=== PATIENT | female | born 1960 | race African-American/Black ===

== ENCOUNTER 2018-12-05 07:09 | Inpatient (IN) | payer MEDICARE, MEDICAID ==
[~2018-12-05] VITALS: Ht 154.9 cm; Wt 103.6 kg
[2018-12-05] MEDS ORDERED: ONDANSETRON HCL 4MG/2ML INJ IV STA (08:11)
[2018-12-05] MEDS ORDERED: MORPHINE SULFATE 4 MG/ML CPJ (NOT FOR IM USE) IV STA (08:11)
[2018-12-05] MEDS ORDERED: SODIUM CHLORIDE 0.9% 1,000 ML IV ONE (08:11)
[2018-12-05] MEDS ORDERED: DIATR MEGLU/DIATRIZOATE SOLN 30ML ONE (08:55)
[2018-12-05 09:35] LABS: HEMATOCRIT. 43.6 % (36.0-48.0); HEMOGLOBIN. 14.6 g/dL (12.0-16.0); MEAN CORPUSCULAR HEMOGLOBIN 27.9 pg (28.0-32.0); MEAN CORPUSCULAR VOLUME 83.1 fL (81.0-99.0); MEAN PLATELET VOLUME 7.6 fl (7.4-10.4); PLATELET 264 x1000/uL (130-400); RED BLOOD CELL COUNT 5.25 mill/uL (4.2-5.4); RED CELL DISTRIBUTION WIDTH 15.7 % (11.6-14.6)
[2018-12-05 09:41] LABS: CHLORIDE 95 mEq/L (98-107)
[2018-12-05 10:24] LABS: PLATELET ESTIMATE NORMAL
[2018-12-05] MEDS ORDERED: CLONIDINE 0.1MG TABLET PO PRN (19:30)
[2018-12-05] MEDS ORDERED: KETOROLAC 30MG/ML VIAL IV PRN (19:30)
[2018-12-05] MEDS ORDERED: HYDROMORPHONE HCL/PF 2MG/ML CPJ IV PRN (19:30)
[2018-12-05] MEDS ORDERED: DIPHENHYDRAMINE 50MG/ML VIAL IV PRN (19:30)
[2018-12-05] MEDS ORDERED: ONDANSETRON HCL 4MG/2ML INJ IV PRN (19:30)
[2018-12-05] MEDS ORDERED: IPRATROPIUM/ALBUTEROL 0.5-3(2.5)MG/3ML NEB INH PRN (19:30)
[2018-12-05] MEDS ORDERED: ACETAMINOPHEN 325MG TABLET PO PRN (19:30)
[2018-12-05] MEDS ORDERED: GUAIFENESIN 200MG/10ML SUGAR FREE UDC PO PRN (19:30)
[2018-12-05 20:00] VITALS: BP 130/79
[2018-12-05] MEDS ORDERED: ASPI-1159 PO (21:41)
[2018-12-05] MEDS ORDERED: LOVA10TA54 PO (21:41)
[2018-12-05] MEDS ORDERED: GABA-531 PO (21:41)
[2018-12-05] MEDS ORDERED: METF-414 PO (21:41)
[2018-12-05] MEDS ORDERED: LOSA1TAB37 PO (21:41)
[2018-12-05] MEDS ORDERED: FERR325T23 PO (21:56)
[2018-12-05] MEDS ORDERED: CHOL500063 PO (21:56)
[2018-12-05] MEDS ORDERED: CALC-1042 PO (21:56)
[2018-12-05] MEDS ORDERED: CYAN250010 PO (21:56)
[2018-12-05] MEDS: PANTOPRAZOLE SODIUM 40 MG/VIAL IV SCH (22:42)
[2018-12-05] MEDS: SODIUM CHLORIDE 0.9% 1,000 ML IV SCH (22:43)
[2018-12-06] VITALS: BP 135/59
[2018-12-06 01:19] VITALS: BP 128/82
[2018-12-06 04:00] VITALS: BP 126/64
[2018-12-06] MEDS ORDERED: DEXTROSE 50% WATER 50ML SYRINGE IV PRN (05:45)
[2018-12-06 06:24] LABS: BASOPHILS % 0.1 % (0.0-2.0); EOSINOPHILS % 0.3 % (0.0-5.0); HEMATOCRIT. 41.1 % (36.0-48.0); HEMOGLOBIN. 13.7 g/dL (12.0-16.0); LYMPHOCYTES % 13.1 % (20.0-50.0); MEAN CORPUSCULAR HEMOGLOBIN 27.7 pg (28.0-32.0); MEAN CORPUSCULAR VOLUME 83.3 fL (81.0-99.0); MEAN PLATELET VOLUME 7.5 fl (7.4-10.4); MONOCYTES % 8.4 % (2.0-8.0); NEUTROPHILS % 78.1 % (40.0-76.0); PLATELET 295 x1000/uL (130-400); RED BLOOD CELL COUNT 4.93 mill/uL (4.2-5.4); RED CELL DISTRIBUTION WIDTH 15.2 % (11.6-14.6)
[2018-12-06 06:34] LABS: CHLORIDE 97 mEq/L (98-107)
[2018-12-06 06:50] LABS: PHOSPHORUS 4.5 mg/dL (2.5-4.9)
[2018-12-06] MEDS: BLOOD SUGAR DIAGNOSTIC STRIP TEST SCH ×4 (07:35→21:54)
[2018-12-06] MEDS: INSULIN LISPRO 100 UNITS/ML SUBCUT SCH ×4 (07:50→21:00)
[2018-12-06] MEDS: PANTOPRAZOLE SODIUM 40 MG/VIAL IV SCH (08:59)
[2018-12-06 12:00] VITALS: BP_SYST 106; BP_SYST 120; BP_DIAS 56; BP_DIAS 60
[2018-12-06] MEDS: SODIUM CHLORIDE 0.9% 1,000 ML IV SCH (15:25)
[2018-12-06 16:00] VITALS: BP 106/56
[2018-12-06 20:00] VITALS: BP 110/60
[2018-12-07] MEDS: SODIUM CHLORIDE 0.9% 1,000 ML IV SCH ×4 (01:25→21:25)
[2018-12-07 02:52] VITALS: BP 120/60
[2018-12-07 04:00] VITALS: BP 126/64
[2018-12-07] MEDS: BLOOD SUGAR DIAGNOSTIC STRIP TEST SCH ×4 (07:25→21:16)
[2018-12-07] MEDS: INSULIN LISPRO 100 UNITS/ML SUBCUT SCH ×4 (07:25→21:00)
[2018-12-07 08:00] VITALS: BP 146/84
[2018-12-07] MEDS: PANTOPRAZOLE SODIUM 40 MG/VIAL IV SCH (08:45)
[2018-12-07 12:00] VITALS: BP 144/84
[2018-12-07 16:24] VITALS: BP 146/79
[2018-12-08] MEDS: BLOOD SUGAR DIAGNOSTIC STRIP TEST SCH ×2 (07:20→11:59)
[2018-12-08] MEDS: SODIUM CHLORIDE 0.9% 1,000 ML IV SCH (07:25)
[2018-12-08] MEDS: INSULIN LISPRO 100 UNITS/ML SUBCUT SCH ×2 (07:50→11:59)
[2018-12-08 08:00] VITALS: BP 143/77
[2018-12-08] MEDS: PANTOPRAZOLE SODIUM 40 MG/VIAL IV SCH (09:00)
[2018-12-08 12:00] VITALS: BP 150/82
[2018-12-08 13:38] VITALS: BP 150/82
== END 2018-12-08 15:27 | disposition home or self-care (01) | DRG 389 ==
LOC: ER 07:09 → 6EST 14:09 → ENRESERV 14:19
PROVIDERS: ADMIT Internal Medicine; ATTEND Internal Medicine
DX: K56.699 Other intestinal obstruction unspecified as to partial versus complete obstruction (principal); Z68.41 Body mass index [BMI] 40.0-44.9, adult; E11.40 Type 2 diabetes mellitus with diabetic neuropathy, unspecified; I10 Essential (primary) hypertension; Z96.659 Presence of unspecified artificial knee joint; J44.9 Chronic obstructive pulmonary disease, unspecified; F32.9 Major depressive disorder, single episode, unspecified; F41.9 Anxiety disorder, unspecified; K21.9 Gastro-esophageal reflux disease without esophagitis; F17.210 Nicotine dependence, cigarettes, uncomplicated; Z82.49 Family history of ischemic heart disease and other diseases of the circulatory system; Z88.2 Allergy status to sulfonamides; Z90.710 Acquired absence of both cervix and uterus; Z98.84 Bariatric surgery status; Z88.8 Allergy status to other drugs, medicaments and biological substances; Z79.82 Long term (current) use of aspirin; Z79.84 Long term (current) use of oral hypoglycemic drugs; Z79.899 Other long term (current) drug therapy
CPT/HCPCS: 36415; 74018; 74177; 80048; 82962; 83735; 84100; 93970; 96374; 96375; 99285; C9113; J2270; J2405; J7030; Q9963

== ENCOUNTER 2019-08-03 10:57 | Emergency (ER) | payer MEDICARE, MEDICAID ==
[~2019-08-03] VITALS: Ht 157.5 cm; Wt 105.0 kg
[~2019-08-03 10:57] MED LIST: ASPI-1393 PO; CALC-1042 PO; CHOL500063 PO; CYAN250010 PO; FERR325T23 PO; GABA-531 PO; LOSA1TAB37 PO; LOVA10TA54 PO; METF-414 PO
[2019-08-03] MEDS ORDERED: PREDNISONE 20MG TABLET PO STA (11:42)
[2019-08-03] MEDS ORDERED: ALBUTEROL (0.083%) 2.5MG/3ML NEB HHN STA (11:42)
[2019-08-03] MEDS ORDERED: SODIUM CHLORIDE 0.9% 1,000 ML IV ONE (11:42)
[2019-08-03] MEDS ORDERED: IPRATROPIUM BROMIDE (0.02%) 0.5MG/2.5ML NEB HHN STA (11:42)
[2019-08-03] MEDS ORDERED: KETOROLAC 30MG/ML VIAL IV ONE (11:45)
[2019-08-03 12:28] LABS: BASOPHILS % 0.6 % (0.0-2.0); EOSINOPHILS % 1.1 % (0.0-5.0); HEMATOCRIT. 43.4 % (36.0-48.0); HEMOGLOBIN. 15.1 g/dL (12.0-16.0); MEAN CORPUSCULAR HEMOGLOBIN 29.6 pg (28.0-32.0); MEAN CORPUSCULAR VOLUME 85.2 fL (81.0-99.0); MEAN PLATELET VOLUME 7.3 fl (7.4-10.4); MONOCYTES % 7.3 % (2.0-8.0); PLATELET 232 x1000/uL (130-400); RED BLOOD CELL COUNT 5.09 mill/uL (4.2-5.4)
[2019-08-03 12:36] LABS: CHLORIDE 94 mEq/L (98-107)
[2019-08-03 12:51] LABS: INR 0.9; PROTHROMBIN TIME 9.7 sec (9.6-11.0)
[2019-08-03 14:26] LABS: CLARITY URINE CLEAR (CLEAR); COLOR URINE YELLOW (YELLOW); KETONES URINE NEGATIVE (NEGATIVE); LEUKOCYTE ESTERASE URINE NEGATIVE (NEGATIVE); NITRITE URINE NEGATIVE (NEGATIVE); OCCULT BLOOD URINE NEGATIVE (NEGATIVE); PROTEIN URINE NEGATIVE (NEGATIVE); SPECIFIC GRAVITY URINE 1.015 (1.005-1.030)
[2019-08-03 16:12] VITALS: BP 136/67
== END 2019-08-03 16:30 | disposition home or self-care (01) ==
LOC: ER 11:15
DX: B34.9 Viral infection, unspecified (principal); J44.9 Chronic obstructive pulmonary disease, unspecified; E11.9 Type 2 diabetes mellitus without complications; I10 Essential (primary) hypertension; R51 Headache; R19.7 Diarrhea, unspecified; F41.9 Anxiety disorder, unspecified; F32.9 Major depressive disorder, single episode, unspecified; F17.200 Nicotine dependence, unspecified, uncomplicated; Z90.710 Acquired absence of both cervix and uterus; Z98.84 Bariatric surgery status; Z96.659 Presence of unspecified artificial knee joint; Z79.84 Long term (current) use of oral hypoglycemic drugs; Z79.899 Other long term (current) drug therapy; Z88.1 Allergy status to other antibiotic agents; Z88.2 Allergy status to sulfonamides
CPT/HCPCS: 36415; 71045; 80053; 81003; 83605; 83735; 84484; 85025; 85610; 94640; 96361; 96374; 99284; J1885; J7030; J7512; J7611

== ENCOUNTER 2019-12-14 15:05 | Inpatient (IN) | payer MEDICARE, MEDICAID ==
[~2019-12-14] VITALS: Ht 157.5 cm; Wt 103.2 kg
[~2019-12-14 15:05] MED LIST changes: -ASPI-1393 PO; +ASPI-1497 PO
[2019-12-14 21:17] LABS: EOSINOPHILS % 2.2 % (0.0-5.0); HEMATOCRIT. 40.4 % (36.0-48.0); HEMOGLOBIN. 14.2 g/dL (12.0-16.0); LYMPHOCYTES % 20.4 % (20.0-50.0); MEAN CORPUSCULAR VOLUME 82.2 fL (81.0-99.0); MEAN PLATELET VOLUME 7.2 fl (7.4-10.4); MONOCYTES % 7.6 % (2.0-8.0); NEUTROPHILS % 68.8 % (40.0-76.0); PLATELET 257 x1000/uL (130-400); RED BLOOD CELL COUNT 4.91 mill/uL (4.2-5.4); RED CELL DISTRIBUTION WIDTH 13.9 % (11.6-14.6)
[2019-12-14 21:22] LABS: CHLORIDE 98 mEq/L (98-107)
[2019-12-15] MEDS ORDERED: ACETAMINOPHEN 325MG TABLET PO PRN (08:45)
[2019-12-15] MEDS ORDERED: ONDANSETRON HCL 4MG/2ML INJ IV PRN (08:45)
[2019-12-15 09:25] LABS: LDL CHOLESTEROL 124 mg/dL (5-100)
[2019-12-15 09:26] LABS: HDL CHOLESTEROL 63 mg/dL (40-59)
[2019-12-15] MEDS ORDERED: ASPIRIN 81MG TABLET PO SCH (12:30)
[2019-12-15] MEDS ORDERED: VARE0.5T MT (12:54)
[2019-12-15 15:30] VITALS: BP 117/75
[2019-12-15 18:00] VITALS: BP 117/75
[2019-12-15 20:00] VITALS: BP 112/52
[2019-12-15] MEDS ORDERED: DEXTROSE 50% WATER 50ML SYRINGE IV PRN (20:45)
[2019-12-15] MEDS: INSULIN LISPRO 100 UNITS/ML SUBCUT SCH (21:00)
[2019-12-15] MEDS: METOPROLOL TARTRATE 25MG TABLET PO SCH (21:20)
[2019-12-15] MEDS: ENOXAPARIN 30MG/0.3ML SYR SUBCUT SCH (21:20)
[2019-12-15] MEDS: BLOOD SUGAR DIAGNOSTIC STRIP TEST SCH (21:22)
[2019-12-15] MEDS: GABAPENTIN 300MG CAPSULE PO SCH (21:44)
[2019-12-15] MEDS: CHANTIX 1 MG PO SCH (23:09)
[2019-12-16] VITALS: BP 114/69
[2019-12-16 01:09] LABS: CLARITY URINE CLOUDY (CLEAR); COLOR URINE YELLOW (YELLOW); KETONES URINE NEGATIVE (NEGATIVE); LEUKOCYTE ESTERASE URINE 2+ (NEGATIVE); NITRITE URINE NEGATIVE (NEGATIVE); OCCULT BLOOD URINE NEGATIVE (NEGATIVE); PH URINE 5.5 (4.5-8.0); PROTEIN URINE NEGATIVE (NEGATIVE); SPECIFIC GRAVITY URINE 1.019 (1.005-1.030)
[2019-12-16 02:10] LABS: *BENZODIAZEPINES SCREEN URINE NEGATIVE (NEGATIVE)
[2019-12-16 02:11] LABS: *AMPHETAMINES SCREEN URINE NEGATIVE (NEGATIVE); *COCAINE SCREEN URINE NEGATIVE (NEGATIVE); CANNABINOID URINE SCREEN NEGATIVE (NEGATIVE); METHADONE URINE SCREEN NEGATIVE (NEGATIVE); OPIATES URINE SCREEN NEGATIVE (NEGATIVE); PHENCYCLIDINE URINE SCREEN NEGATIVE (NEGATIVE)
[2019-12-16 02:12] LABS: *BARBITURATES SCREEN URINE NEGATIVE (NEGATIVE)
[2019-12-16 04:00] VITALS: BP 121/77
[2019-12-16] MEDS: BLOOD SUGAR DIAGNOSTIC STRIP TEST SCH ×4 (06:23→21:09)
[2019-12-16 07:16] LABS: EOSINOPHILS % 3.2 % (0.0-5.0); HEMATOCRIT. 39.3 % (36.0-48.0); HEMOGLOBIN. 13.4 g/dL (12.0-16.0); LYMPHOCYTES % 25.3 % (20.0-50.0); MEAN CORPUSCULAR HEMOGLOBIN 28.2 pg (28.0-32.0); MEAN CORPUSCULAR VOLUME 82.5 fL (81.0-99.0); MEAN PLATELET VOLUME 7.4 fl (7.4-10.4); MONOCYTES % 7.6 % (2.0-8.0); NEUTROPHILS % 62.9 % (40.0-76.0); PLATELET 248 x1000/uL (130-400); RED BLOOD CELL COUNT 4.77 mill/uL (4.2-5.4); RED CELL DISTRIBUTION WIDTH 14.2 % (11.6-14.6)
[2019-12-16] MEDS: INSULIN LISPRO 100 UNITS/ML SUBCUT SCH ×4 (07:39→21:13)
[2019-12-16 07:46] LABS: VITAMIN B12 SERUM > 2000.0 pg/mL (211-911)
[2019-12-16 07:52] LABS: CHLORIDE 100 mEq/L (98-107)
[2019-12-16 08:00] VITALS: BP 118/67
[2019-12-16] MEDS ORDERED: MEDICATION NOT ON FORMULARY EA (Losartan/Hydrochlorothiazide (Losartan-Hctz 100-25 Mg Ta PO SCH (09:00)
[2019-12-16] MEDS: HYDROCHLOROTHIAZIDE 25MG TABLET PO SCH (09:00)
[2019-12-16] MEDS ORDERED: ASPIRIN 81MG TABLET PO SCH (09:00)
[2019-12-16] MEDS ORDERED: CALCIUM CARBONATE 1250MG TABLET (500MG ELEMENTAL CALCIUM) PO SCH (09:00)
[2019-12-16] MEDS: CHOLECALCIFEROL (D3) 1000 UNIT TABLET PO SCH (09:20)
[2019-12-16] MEDS: ASPIRIN 81MG EC TABLET PO SCH (09:21)
[2019-12-16] MEDS: GABAPENTIN 300MG CAPSULE PO SCH ×3 (09:21→18:13)
[2019-12-16] MEDS: METOPROLOL TARTRATE 25MG TABLET PO SCH ×2 (09:23→21:07)
[2019-12-16] MEDS: FERROUS SULFATE 325MG TABLET PO SCH (09:24)
[2019-12-16] MEDS: METFORMIN HCL 500MG TABLET PO SCH ×2 (09:24→18:12)
[2019-12-16] MEDS: LOSARTAN POTASSIUM 25 MG TABLET PO SCH (09:25)
[2019-12-16] MEDS: CHANTIX 1 MG PO SCH ×2 (09:26→21:08)
[2019-12-16] MEDS: ENOXAPARIN 30MG/0.3ML SYR SUBCUT SCH ×2 (09:28→21:08)
[2019-12-16] MEDS: CYANOCOBALAMIN 1000MCG TABLET PO SCH (09:33)
[2019-12-16] MEDS: CALCIUM CARBONATE 1250MG TABLET (500MG ELEMENTAL CALCIUM) PO SCH ×3 (10:23→18:13)
[2019-12-16 12:00] VITALS: BP 107/65
[2019-12-16 16:00] VITALS: BP 105/70
[2019-12-16] MEDS ORDERED: CEFTRIAXONE 1,000 MG in DEXTROSE 5% WATER 50 ML IV SCH (16:00)
[2019-12-16] MEDS ORDERED: Lovastatin 10 MG TABLET PO SCH (17:00)
[2019-12-16 20:00] VITALS: BP 115/72
[2019-12-17] VITALS: BP 127/76
[2019-12-17 04:00] VITALS: BP 106/59
[2019-12-17] MEDS: BLOOD SUGAR DIAGNOSTIC STRIP TEST SCH (06:27)
[2019-12-17] MEDS: INSULIN LISPRO 100 UNITS/ML SUBCUT SCH (07:50)
[2019-12-17 08:00] VITALS: BP 121/68
[2019-12-17 08:36] VITALS: BP 121/68
[2019-12-17] MEDS: CHOLECALCIFEROL (D3) 1000 UNIT TABLET PO SCH (10:58)
[2019-12-17] MEDS: CALCIUM CARBONATE 1250MG TABLET (500MG ELEMENTAL CALCIUM) PO SCH (10:59)
[2019-12-17] MEDS: GABAPENTIN 300MG CAPSULE PO SCH (10:59)
[2019-12-17] MEDS: FERROUS SULFATE 325MG TABLET PO SCH (10:59)
[2019-12-17] MEDS: ASPIRIN 81MG EC TABLET PO SCH (10:59)
[2019-12-17] MEDS: METOPROLOL TARTRATE 25MG TABLET PO SCH (10:59)
[2019-12-17] MEDS: METFORMIN HCL 500MG TABLET PO SCH (10:59)
[2019-12-17] MEDS: HYDROCHLOROTHIAZIDE 25MG TABLET PO SCH (11:00)
[2019-12-17] MEDS: LOSARTAN POTASSIUM 25 MG TABLET PO SCH (11:00)
[2019-12-17] MEDS: CYANOCOBALAMIN 1000MCG TABLET PO SCH (11:03)
[2019-12-17] MEDS: ENOXAPARIN 30MG/0.3ML SYR SUBCUT SCH (11:08)
[2019-12-17] MEDS: CHANTIX 1 MG PO SCH (11:08)
[2019-12-17 12:00] VITALS: BP 134/86
[2019-12-17 13:13] VITALS: BP 134/86
== END 2019-12-17 13:45 | disposition home or self-care (01) | DRG 206 ==
LOC: ER 15:05 → 6WST 12-15 03:04 → EDBEDREQTM 12-15 03:08 → EDBEDREQ 12-15 03:08 → EDBEDREQDT 12-15 03:08 → ENRESERV 12-15 16:41
PROVIDERS: ADMIT Internal Medicine Nephrology; ATTEND Internal Medicine Nephrology
DX: M94.0 Chondrocostal junction syndrome [Tietze] (principal); N39.0 Urinary tract infection, site not specified; Z68.41 Body mass index [BMI] 40.0-44.9, adult; R00.2 Palpitations; E11.9 Type 2 diabetes mellitus without complications; F32.9 Major depressive disorder, single episode, unspecified; J44.9 Chronic obstructive pulmonary disease, unspecified; I10 Essential (primary) hypertension; F41.9 Anxiety disorder, unspecified; E66.01 Morbid (severe) obesity due to excess calories; Z96.652 Presence of left artificial knee joint; I49.3 Ventricular premature depolarization; E66.9 Obesity, unspecified; Z87.891 Personal history of nicotine dependence; Z90.710 Acquired absence of both cervix and uterus; Z98.84 Bariatric surgery status; Z88.2 Allergy status to sulfonamides; Z79.899 Other long term (current) drug therapy; Z79.82 Long term (current) use of aspirin; Z79.84 Long term (current) use of oral hypoglycemic drugs; Z88.1 Allergy status to other antibiotic agents; Z71.89 Other specified counseling
CPT/HCPCS: 36415; 71045; 80048; 80053; 80061; 80305; 81003; 82607; 82962; 83036; 83880; 84443; 84484; 85025; 93005; 93306; 99285; J0696; J1650; J1815; J7060